=== PATIENT | male | born 1980 | race Caucasian/White ===

== ENCOUNTER 2019-02-22 11:21 | Emergency (ER) | payer OTHER ==
[~2019-02-22] VITALS: Ht 175.3 cm; Wt 90.9 kg
[2019-02-22] MEDS ORDERED: ROBA500T PO (11:29)
[2019-02-22] MEDS ORDERED: KETOROLAC 60 MG/2 ML VIAL (J1885) IM ONE (12:30)
--- NOTE | 2019-02-22 12:59 | REP ---
Left shoulder three views : There is no fracture or dislocation. Mineralization and joint spaces are normal. There are no calcifications or foreign bodies. Incidentally there is a humeral head, bone island. Impression: Negative left shoulder . Electronically Signed by Arjun Bartlett MD 02/22/2019 12:51 P
[2019-02-22 13:29] VITALS: BP 130/83
== END 2019-02-22 13:29 | disposition home or self-care (01) ==
LOC: M ED 11:21
DX: S43.402A Unspecified sprain of left shoulder joint, initial encounter (principal); X58.XXXA Exposure to other specified factors, initial encounter; Y92.89 Other specified places as the place of occurrence of the external cause; F17.299 Nicotine dependence, other tobacco product, with unspecified nicotine-induced disorders
CPT/HCPCS: 73030; 96372; 99284; J1885

== ENCOUNTER 2019-08-25 14:11 | Emergency (ER) | payer OTHER ==
[~2019-08-25] VITALS: Ht 175.3 cm; Wt 92.8 kg
[~2019-08-25 14:11] MED LIST: ROBA500T PO
[2019-08-25] MEDS ORDERED: TIZA4CAP6 PO (14:19)
[2019-08-25] MEDS ORDERED: IBUP-1022 PO (14:19)
[2019-08-25 18:37] VITALS: BP 113/67
== END 2019-08-25 18:45 | disposition home or self-care (01) ==
LOC: M ED 14:11
DX: T88.7XXA Unspecified adverse effect of drug or medicament, initial encounter (principal); Z79.899 Other long term (current) drug therapy

== ENCOUNTER 2021-04-29 21:43 | Emergency (ER) | payer OTHER ==
[~2021-04-29] VITALS: Ht 175.3 cm; Wt 100.0 kg
[~2021-04-29 21:43] MED LIST changes: +IBUP-1022 PO; +TIZA4CAP6 PO
[2021-04-29 21:46] VITALS: BP 144/98
[2021-04-29] MEDS ORDERED: GABA-282 (22:06)
[2021-04-29] MEDS ORDERED: PRAZ1CAP (22:06)
[2021-04-29] MEDS ORDERED: DOCU100C16 (22:06)
[2021-04-29] MEDS ORDERED: ACET1TAB55 (22:06)
[2021-04-29] MEDS ORDERED: CELE1CAP9 (22:06)
[2021-04-29] MEDS ORDERED: ZOLO50TA PO (22:06)
[2021-04-29] MEDS ORDERED: TRAZ-252 (22:06)
[2021-04-29] MEDS ORDERED: OXYC-517 (22:06)
== END 2021-04-30 01:32 | disposition left against medical advice (07) ==
LOC: M ED 21:43
DX: Z53.21 Procedure and treatment not carried out due to patient leaving prior to being seen by health care provider (principal)

== ENCOUNTER 2024-06-07 18:21 | Emergency (ER) | payer OTHER ==
[~2024-06-07] VITALS: Ht 175.3 cm; Wt 97.2 kg
[~2024-06-07 18:21] MED LIST changes: +ACET1TAB55; +CELE0.09; +DOCU100C16; +ELIQ5TAB PO; +GABA-1172; +OXYC-517; +PRAZ1CAP; +SERT25TA85 PO; +SILD25TA2; +TIZA4CAP3 PO; -TIZA4CAP6 PO; +TRAZ-252; +VALA1TAB5; +ZOLO50TA PO
[2024-06-07 20:54] LABS: GC DNA AMPLIFICATION NEGATIVE (NEGATIVE)
[2024-06-07 21:00] VITALS: BP 142/102; TEMP 97.9; O2SAT 98
== END 2024-06-07 21:32 | disposition home or self-care (01) ==
LOC: M ED 18:21
DX: N43.3 Hydrocele, unspecified (principal); F43.10 Post-traumatic stress disorder, unspecified; Z86.718 Personal history of other venous thrombosis and embolism; Z79.01 Long term (current) use of anticoagulants; Z79.1 Long term (current) use of non-steroidal anti-inflammatories (NSAID); Z79.899 Other long term (current) drug therapy

== ENCOUNTER → 2024-08-19 | Outpatient (REF) | LOC: M PLAIMG 11:27 | PROVIDERS: ATTEND Internal Medicine | DX: R52 Pain, unspecified (principal) ==